=== PATIENT | female | born 1975 | race Caucasian/White ===

== ENCOUNTER 2017-12-08 15:30 | Outpatient (CLI) | payer SELFPAY ==
--- NOTE | 2017-12-09 10:59 | MMO ---
BILATERAL DIGITAL SCREENING MAMMOGRAMS: Date: 12/08/17 This patient's mammogram was interpreted with the assistance of computer-aided detection. Baseline exam. FINDINGS: There are scattered fibroglandular densities. No suspicious calcifications, masses, or architectural distortion seen. IMPRESSION: BIRADS 1: Negative Return to annual mammographic screening. POS: [facility]
== END 2017-12-08 15:31 | disposition home or self-care (01) ==
LOC: SCSMAMMO 15:30
PROVIDERS: ATTEND Internal Medicine
DX: Z12.31 Encounter for screening mammogram for malignant neoplasm of breast (principal)
CPT/HCPCS: 77067